=== PATIENT | male | born 1965 | race Two or more races ===

== ENCOUNTER 2021-07-05 16:18 | Emergency (ER) | payer OTHER ==
[2021-07-05 16:46] VITALS: BP 140/90; PULSE 60; TEMP 98; BMI 33.6
== END 2021-07-05 18:17 | disposition home or self-care (01) ==
LOC: FER 16:18
DX: Z77.21 Contact with and (suspected) exposure to potentially hazardous body fluids (principal); Y35.811A Legal intervention involving manhandling, law enforcement official injured, initial encounter
CPT/HCPCS: 99281-25